=== PATIENT | female | born 1965 | race African-American/Black ===

== ENCOUNTER 2020-05-12 10:26 | Emergency (ER) | payer MEDICAID ==
[~2020-05-12] VITALS: Ht 165.1 cm; Wt 59.8 kg
[2020-05-12] MEDS ORDERED: ACETAMINOPHEN 325MG TABLET PO STA (10:46)
[2020-05-12] MEDS ORDERED: GUAIFENESIN-DM 200MG-20MG/10ML UDC PO ONE (11:00)
[2020-05-12 11:38] LABS: BASOPHILS % 0.3 % (0.0-2.0); EOSINOPHILS % 0.1 % (0.0-5.0); HEMATOCRIT. 36.9 % (36.0-48.0); HEMOGLOBIN. 13.1 g/dL (12.0-16.0); LYMPHOCYTES % 21.5 % (20.0-50.0); MEAN CORPUSCULAR HEMOGLOBIN 29.2 pg (28.0-32.0); MEAN CORPUSCULAR VOLUME 82.2 fL (81.0-99.0); MEAN PLATELET VOLUME 7.3 fl (7.4-10.4); MONOCYTES % 5.2 % (2.0-8.0); NEUTROPHILS % 72.9 % (40.0-76.0); PLATELET 223 x1000/uL (130-400); RED BLOOD CELL COUNT 4.48 mill/uL (4.2-5.4); RED CELL DISTRIBUTION WIDTH 13.7 % (11.6-14.6)
[2020-05-12 11:48] LABS: CHLORIDE 98 mEq/L (98-107)
[2020-05-12] MEDS ORDERED: AZITHROMYCIN 500 MG TABLET PO ONE (12:30)
[2020-05-12] MEDS ORDERED: DEXAMETHASONE 4MG/ML 1ML VIAL IM ONE (12:30)
[2020-05-12 12:46] VITALS: BP 118/78
[2020-05-17] MEDS ORDERED: AMLO10TA80 MT (01:23)
[2020-05-17] MEDS ORDERED: GLIM4TAB36 MT (01:23)
[2020-05-17] MEDS ORDERED: METF-415 MT (01:23)
[2020-05-17] MEDS ORDERED: HYDR25TA MT (01:23)
[2020-05-17] MEDS ORDERED: AZIT250T12 PO (01:23)
[2020-05-17] MEDS ORDERED: ASPI-1158 MT (01:23)
[2020-05-17] MEDS ORDERED: LISI-604 MT (01:23)
[2020-05-18] MEDS ORDERED: ASCO500T20 PO (12:48)
[2020-05-18] MEDS ORDERED: AZIT250T12 PO (12:48)
[2020-05-18] MEDS ORDERED: P50 MT (12:48)
[2020-05-18] MEDS ORDERED: TOPUD PO (12:48)
[2020-05-18] MEDS ORDERED: LANTUSUD SUBCUT (12:48)
[2020-05-18] MEDS ORDERED: ZINC220C2 PO (12:48)
[2020-05-18] MEDS ORDERED: DEXTL PO (12:48)
[2020-05-18] MEDS ORDERED: LOSA50TA41 MT (12:49)
== END 2020-05-12 12:46 | disposition home or self-care (01) ==
LOC: ER 10:59
DX: U07.1 COVID-19 (principal); R05 Cough; I10 Essential (primary) hypertension; J45.909 Unspecified asthma, uncomplicated; E11.9 Type 2 diabetes mellitus without complications
CPT/HCPCS: 36415; 71045; 80053; 85025; 87635; 93005; 96372; 99285; C9803; J1100